=== PATIENT | male | born 1965 | race Caucasian/White ===

== ENCOUNTER → 2017-03-31 | Outpatient (CLI) | payer BC ==
--- NOTE | 2017-03-31 15:38 | DIAGNOSTIC IMAGING REPORT ---
MASTOIDS-ORB/SELLA/TEMP W/O CLINICAL HISTORY: 52 years-old Male presenting with H90.8 Mixed hearing lossH73.92 Abnormal tympanic membrane of left. TECHNIQUE: Multidetector CT of the temporal bone was performed without the use of intravenous contrast. IV contrast: None. A dose lowering technique was used consistent with the principles of ALARA (as low as reasonably achievable). COMPARISON: None. CT DOSE (mGy.cm): The estimated cumulative dose is 308.53 mGycm. FINDINGS: Physician Compensation Analyst topogram: Unremarkable. External auditory canals patent bilaterally. Tympanic membranes thin and imperceptible. No evidence of ossicular disruption. Fluid within the left mastoid air cells with suggestion of erosion of the septae. No dehiscence of the tegmen mastoideum. No dehiscence of the jugular bulb. The right mastoid air cells are normal. No abnormal lucency or sclerosis in the region of the bony labyrinths. Normal vestibular aqueducts. Limited intracranial evaluation within normal limits. 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 No gross osseous destruction to suggest intracranial extension. Electronically signed by: Vinod Olivares M.D. 03/31/2017 3:36 PM Dictated Date/Time: 03/31/2017 3:28 PM
== END | disposition home or self-care (01) ==
LOC: C.CTS 14:46
PROVIDERS: ATTEND Physician Assistant
DX: H73.92 Unspecified disorder of tympanic membrane, left ear (principal); H90.8 Mixed conductive and sensorineural hearing loss, unspecified

== ENCOUNTER → 2017-05-04 | Outpatient (CLI) | payer BC ==
[~2017-05-04] MED LIST: AZEL0.056 NAE; FEXO1TAB49 PO; FLUT0.15 NAE
[2017-05-04 17:59] LABS: LYME DISEASE AB IGG NEG (NEG)
[2017-05-04 18:13] LABS: LYME DISEASE AB IGM EQUIVOCAL (NEG)
[2017-05-11 10:40] LABS: 18KDIGG BAND NONREACTIVE (NONREACTIVE); 23KDIGG BAND NONREACTIVE (NONREACTIVE); 23KDIGM BAND NONREACTIVE (NONREACTIVE); 28KDIGG BAND NONREACTIVE (NONREACTIVE); 30KDIGG BAND NONREACTIVE (NONREACTIVE); 39KDIGG BAND NONREACTIVE (NONREACTIVE); 39KDIGM BAND NONREACTIVE (NONREACTIVE); 41KDIGG BAND NONREACTIVE (NONREACTIVE); 41KDIGM BAND NONREACTIVE (NONREACTIVE); 45KDIGG BAND NONREACTIVE (NONREACTIVE); 58KDIGG BAND NONREACTIVE (NONREACTIVE); 66KDIGG BAND NONREACTIVE (NONREACTIVE); 93KDIGG BAND NONREACTIVE (NONREACTIVE)
== END | disposition home or self-care (01) ==
LOC: C.LAB1850 15:46
PROVIDERS: ATTEND Physician Assistant
DX: T14.8XXA Other injury of unspecified body region, initial encounter (principal); W57.XXXA Bitten or stung by nonvenomous insect and other nonvenomous arthropods, initial encounter

== ENCOUNTER → 2017-09-29 | Outpatient (CLI) | payer OTHER ==
--- NOTE | 2017-09-29 14:44 | DIAGNOSTIC IMAGING REPORT ---
LEFT FOOT 3 VIEWS CLINICAL HISTORY: Left foot pain. FINDINGS: 3 views of the left foot are obtained. No prior studies are available for comparison at the time of dictation. The skeletal structures appear osteopenic. No fracture is seen. There are large dorsal and plantar calcaneal enthesophytes. 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 Mild to moderate arthritic change is seen at the first metatarsophalangeal joint. Chronic posttraumatic deformity is suggested in the distal aspect of the second proximal phalanx. IMPRESSION: 1. No acute bony abnormality is seen in the left foot. 2. Osteopenia, heel spurs, and degenerative change as above. Electronically signed by: Jose Jett M.D. 09/29/2017 2:43 PM Dictated Date/Time: 09/29/2017 2:41 PM
== END | disposition home or self-care (01) ==
LOC: C.RAD1850 14:26
PROVIDERS: ATTEND Physician Assistant
DX: M79.672 Pain in left foot (principal); M85.872 Other specified disorders of bone density and structure, left ankle and foot; M77.32 Calcaneal spur, left foot

== ENCOUNTER → 2017-10-07 | Outpatient (CLI) | payer OTHER ==
--- NOTE | 2017-10-07 14:36 | DIAGNOSTIC IMAGING REPORT ---
LEFT FOOT ULTRASOUND CLINICAL HISTORY: M79.672 Acute foot pain, COMPARISON STUDY: Left foot 09/29/2017. FINDINGS: Real-time sonographic imaging within the left foot was obtained. At the plantar location there is a fusiform 1.6 x 1.8 x 0.5 cm hypoechoic lesion within the subcutaneous fat. This is at the location of the second/third metatarsals. IMPRESSION: A 1.8 x 1.6 x 0.5 cm fusiform hypoechoic lobular lesion at the plantar surface of the left foot. 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 Electronically signed by: Kervin Adams M.D. 10/07/2017 2:34 PM Dictated Date/Time: 10/07/2017 2:32 PM
== END | disposition home or self-care (01) ==
LOC: C.ULTRBC 14:10
PROVIDERS: ATTEND Physician Assistant
DX: K64.8 Other hemorrhoids (principal); M79.672 Pain in left foot; L98.9 Disorder of the skin and subcutaneous tissue, unspecified